=== PATIENT | female | born 1985 | race Caucasian/White ===

== ENCOUNTER 2017-05-09 23:19 | Emergency (ER) | payer OTHER ==
[2017-05-09] MEDS ORDERED: NO HOME MEDICATION XX (23:39)
== END 2017-05-10 00:57 ==
LOC: EDMED 23:19
PROC: 0HQNXZZ Repair Left Foot Skin, External Approach (ICD-10-PCS; principal; 2017-05-09)
DX: S91.321A Laceration with foreign body, right foot, initial encounter (principal); W45.8XXA Other foreign body or object entering through skin, initial encounter; Z88.0 Allergy status to penicillin